=== PATIENT | male | born 2005 | race Caucasian/White ===

== ENCOUNTER 2023-10-17 00:16 | Emergency (ER) | payer OTHER ==
[~2023-10-17] VITALS: Ht 180.3 cm; Wt 86.4 kg
[2023-10-17 00:21] VITALS: BP 122/76; PULSE 78; TEMP 98.6
== END 2023-10-17 00:53 | disposition home or self-care (01) ==
LOC: COL.ER 00:16
DX: S60.221A Contusion of right hand, initial encounter (principal); W23.0XXA Caught, crushed, jammed, or pinched between moving objects, initial encounter